=== PATIENT | male | born 1960 | race African-American/Black ===

== ENCOUNTER → 2021-05-24 | Outpatient (CLI) | payer OTHER | LOC: SJCVCIMAG 13:22 | PROVIDERS: ATTEND Internal Medicine | DX: R07.9 Chest pain, unspecified (principal); R07.2 Precordial pain; I10 Essential (primary) hypertension; E78.00 Pure hypercholesterolemia, unspecified; Z79.899 Other long term (current) drug therapy; E78.5 Hyperlipidemia, unspecified ==